=== PATIENT | female | born 1970 | race Two or more races ===

== ENCOUNTER 2017-01-29 17:35 | Emergency (ER) | payer MEDICAID ==
[2017-01-29 19:52] LABS: AMPHETAMINE QUAL UR NONE DETECTED (NEG <=1000)
[2017-01-29 20:16] LABS: BASOPHIL % 0.5 % (0-2); PLATELET COUNT 242 x10^3mcL (130-400)
[2017-01-29 20:19] LABS: RED CELL DISTRIBUTION WIDTH 21.5 % (11.5-14.5)
[2017-01-29 20:31] LABS: CALCIUM 8.6 mg/dL (8.5-10.1); CARBON DIOXIDE 28.6 mmol/L (21-32); CHLORIDE SERUM 105 mmol/L (98-107); CREATININE SERUM 0.6 mg/dL (0.6-1.0); GFR1 > 60 mL/min; GLUCOSE SERUM 93 mg/dL (74-106); POTASSIUM SERUM 3.5 mmol/L (3.5-5.1); SODIUM SERUM 140 mmol/L (136-145)
[2017-01-29 20:43] LABS: ALBUMIN 3.6 g/dL (3.4-5.0); ALKALINE PHOSPHATASE 96 U/L (46-116); ALT/SGPT 27 U/L (14-59); AST/SGOT 21 U/L (15-37); BILIRUBIN TOTAL 0.3 mg/dL (0.20-1.00); TOTAL PROTEIN, SERUM 7.4 g/dL (6.4-8.2)
[2017-01-29 21:01] LABS: rbc morphology (normal/abnorm) ABNORMAL (NORMAL)
[2017-01-29 21:39] LABS: ERYTHROCYTE SED RATE 17 mm/hr (0-20)
[2017-01-29 22:06] VITALS: BP 107/62
[2017-02-02 05:40] LABS: RAPID PLASMA REAGIN Non Reactive (Non Reactive)
== END 2017-01-29 22:06 | disposition home or self-care (01) ==
LOC: ED 17:35
PROVIDERS: Emergency Medicine
DX: G44.209 Tension-type headache, unspecified, not intractable (principal); G51.0 Bell's palsy; D64.9 Anemia, unspecified; R94.6 Abnormal results of thyroid function studies
CPT/HCPCS: 36415; J1885